=== PATIENT | female | born 1980 | race Asian ===

== ENCOUNTER 2017-02-14 17:33 | Emergency (ER) | payer MEDICAID, OTHER ==
[2017-02-14 17:42] VITALS: BP 142/83
--- NOTE | 2017-02-14 19:48 | Emergency Department Report ---
Entered by GERALD ELIZABETH, acting as scribe for JOSE ALCANTARA PA. ED Headache HPI - General Chief Complaint: Headache Stated Complaint: HEAD PAIN Source: patient Exam Limitations: no limitations - History of Present Illness Initial Comments: 36 year old female with no significant PMHx presents to the ED c/o an intermittent right sided headache that began 5 days ago. Patient states that she was engaging in physical activity at home, and subsequently fell and hit her head. Rates pain a 9/10 in severity, which she states radiates to her right ear. Denies LOC, vision changes, numbness, tingling, back pain, neck pain, nausea, vomiting, fever, and chills. Notes taking BC powder at night with relief. LMP 01/27/2017. NKDA. Timing/Duration: other (5 days) Quality: moderate Head Injury Location: frontal (right side) Recent Head Trauma: head trauma > 24 hrs ago (5 days ago) Modifying Factors: improves with: other (BC powder at night) Associated Symptoms: other (right ear pain, but denies nausea, vomiting, SOB, and abdominal pain). denies: confusion, fatigue, fever/chills, loss of consciousness, nausea/vomiting, numbness in legs/feet, stiff neck, vision changes Allergies/Adverse Reactions: Allergies No Known Allergies Allergy (Unverified 11/20/13 16:47) Home Medications: Ambulatory Orders valACYclovir [Valtrex] 500 mg PO DAILY 11/20/13 Ferrous Sulfate [Feosol 325 MG tab] 325 mg PO BID #60 tablet 11/23/13 Vit-Fe Fumar-FA [ Vitamin] 1 each PO QDAY #30 tablet 11/23/13 Cyclobenzaprine [Flexeril] 10 mg PO QHS PRN #20 tablet 02/14/17 Ibuprofen [Motrin 800 MG tab] 800 mg PO TID PRN #30 tablet 02/14/17 ED Review of Systems Comment: All other systems reviewed and negative Constitutional: denies: chills, fever, weakness, other (tingling and LOC) Eyes: denies: eye pain ENT: ear pain (right ear). denies: throat pain Respiratory: denies: cough, orthopnea, shortness of breath, SOB with exertion, SOB at rest Cardiovascular: denies: chest pain, dyspnea on exertion, orthopnea Gastrointestinal: denies: abdominal pain, nausea, vomiting Musculoskeletal: denies: back pain, other (neck pain/stiffness) Skin: denies: rash Neurological: headache (right side ). denies: numbness, abnormal gait ED Past Medical Hx - Past Medical History Hx Hypertension: No Hx Congestive Heart Failure: No Hx Diabetes: No Hx Deep Vein Thrombosis: No Hx Renal Disease: No Hx Sickle Cell Disease: No Hx Seizures: No Hx Asthma: No Hx COPD: No Hx HIV: No - Social History Smoking Status: Never Smoker - Medications Home Medications: Home Medications Medication Instructions Recorded Confirmed Last Taken Type valACYclovir [Valtrex] 500 mg PO DAILY 11/20/13 11/20/13 11/19/13 20:00 History 500 mg Ferrous Sulfate [Feosol 325 MG tab] 325 mg PO BID #60 tablet 11/23/13 Unknown Rx Vit-Fe Fumar-FA [ 1 each PO QDAY #30 tablet 11/23/13 Unknown Rx Vitamin] Cyclobenzaprine [Flexeril] 10 mg PO QHS PRN #20 tablet 02/14/17 Unknown Rx Ibuprofen [Motrin 800 MG tab] 800 mg PO TID PRN #30 tablet 02/14/17 Unknown Rx ED Physical Exam - General Limitations: No Limitations General appearance: alert, in no apparent distress - Head Head exam: Present: atraumatic, normocephalic - Eye Eye exam: Present: normal appearance, PERRL, EOMI. Absent: scleral icterus, conjunctival injection Pupils: Present: normal accommodation - ENT ENT exam: Present: normal exam, normal orophraynx, mucous membranes moist, TM's normal bilaterally, normal external ear exam - Neck Neck exam: Present: normal inspection, full ROM. Absent: tenderness, lymphadenopathy - Respiratory Respiratory exam: Present: normal lung sounds bilaterally. Absent: respiratory distress, wheezes, rales, rhonchi, stridor - Cardiovascular Cardiovascular Exam: Present: regular rate, normal rhythm. Absent: systolic murmur, diastolic murmur, rubs, gallop - GI/Abdominal GI/Abdominal exam: Present: soft. Absent: distended, tenderness, guarding, rebound - Extremities Exam Extremities exam: Present: normal inspection, full ROM. Absent: tenderness - Back Exam Back exam: Present: normal inspection, full ROM - Neurological Exam Neurological exam: Present: alert, oriented X3, CN II-XII intact, normal gait - Expanded Neurological Exam Expanded Patient oriented to: Present: person, place, time Speech: Present: fluid speech Cranial nerves: EOM's Intact: Normal, Tongue Deviation: Normal, Facial Sensation : Normal, Facial Palsy with Forehead Movement: Normal, Facial Palsy without Forehead Movement: Normal Ataxia: Absent: yes Cerebellar function: Finger to Nose: Normal Motor strength exam: RUE: 5, LUE: 5, RLE: 5, LLE: 5 DTR: bicep (R): 2+, bicep (L): 2+, tricep (R): 2+, tricep (L): 2+, knee (R): 2+ , knee (L): 2+, ankle (R): 2+, ankle (L): 2+ Best Eye Response (Darren): (4) open spontaneously Best Motor Response ([place]): (6) obeys commands Best Verbal Response (Darren): (5) oriented Darren Total: 15 - Psychiatric Psychiatric exam: Present: normal affect, normal mood - Skin Skin exam: Present: warm, dry, intact. Absent: rash, abrasion ED Course Vital Signs 02/14/17 17:37 Temperature 98.7 F Pulse Rate 95 H Respiratory 16 Rate Blood Pressure 142/83 ED Medical Decision Making - Medical Decision Making 36-year-old female presents with acute headache secondary to injury. ED course: Patient is neurologically intact. CT scan is not needed. Patient is alert and oriented times threes in no distress. Vital signs are normal. Discussed the patient will follow up with her primary care physician. Discussed the patient if new symptoms arise to return to ED. Patient verbalization understands and will comply. ED Disposition Clinical Impression: Headache Qualifiers: Headache type: unspecified Headache chronicity pattern: episodic headache Intractability: not intractable Qualified Code(s): R51 - Headache Acute tension headache Qualifiers: Intractability: not intractable Qualified Code(s): G44.209 - Tension-type headache, unspecified, not intractable Disposition: DISCHARGED TO HOME OR SELFCARE Is pt being admited?: No Does the pt Need Aspirin: No Condition: Stable Instructions: Concussion (ED), Tension Headache (ED) Additional Instructions: If new symptoms arise such as nausea or vomiting, dizziness, return to ED. Otherwise take medication as prescribed. Follow-up she primary care doctor at [facility]. Prescriptions: Cyclobenzaprine [Flexeril] 10 mg PO QHS PRN #20 tablet PRN Reason: Muscle Spasm Ibuprofen [Motrin 800 MG tab] 800 mg PO TID PRN #30 tablet PRN Reason: Pain Referrals: JAVED JACK MD [Primary Care Provider] - 3-5 Days MATT RIVERA MD [Referring] - 3-5 Days Forms: Work/School Release Form(ED) Time of Disposition: 19:27 This documentation as recorded by the GLENN merrill JASMINE,accurately reflects the service I personally performed and the decisions made by QUINTON segal OYINLOLA A PA.
== END 2017-02-14 19:47 | disposition home or self-care (01) ==
LOC: ED 17:33
DX: R51 Headache (principal)
CPT/HCPCS: 99282